=== PATIENT | male | born 1965 | race Caucasian/White ===

== ENCOUNTER 2017-12-13 06:43 | Day surgery (SDC) | payer OTHER ==
[~2017-12-13] VITALS: Ht 177.8 cm; Wt 88.5 kg
[~2017-12-13 06:43] MED LIST: ARIPIPRAZOLE5 MG PO; CHLORPROMAZINE100 MG PO; DIVALPROEX SOD500 M1 PO; FLUOXETINE HCL60 MG PO; HYDROCHLOROTHIA25 MG PO; OMEPRAZOLE20 MG PO
[2017-12-13] MEDS ORDERED: METOPROLOL SUCC25 MG PO (07:32)
--- NOTE | 2017-12-13 09:04 | NUR ---
IS COMFORTABLE. IV PATENT. UPDATE GIVEN.
--- NOTE | 2017-12-13 10:02 | NUR ---
0950 UP TO BR. DENIES ANY NEEDS. IV PATENT.
--- NOTE | 2017-12-13 12:36 | NUR ---
12/13/17 1236 Valarie Bennett 1215- CNRA AT [facility] WITH PT, O2 SAT 87%. [employer] SALESPERSON PUT HOB IN HIGH FOWLERS AND USING SUCTION. 1221 ORAL AIRWAY REMOVED. 1223 RT AT [facility] SETTING UP CPAP WITH O2. 1225 BREATHING TREATMENT GIVEN PER [employer] SALESPERSON ORDER. 1228 X-RAY AT [facility] FOR CHEST X-RAY PER [employer] SALESPERSON ORDER. 1229 CPAP SET UP WITH 4L O2. O2 SAT 100%. PT DROWSY, REORIENTED TO PACU, DENINES PAIN AND NAUSEA.
--- NOTE | 2017-12-13 15:16 | NUR ---
1450 AMB WELL TO BR VOIDS QS HAS TAKEN PO WELL. KARLEE PAIN PILL. WANTS TO GO RIDE COMING AT 1500.
--- NOTE | 2017-12-27 17:38 | OR ---
[facility] [address] [place], [place] [address] Signed DATE OF OPERATION: 12/13/2017 SURGEON: Jeremy Still MD PREOPERATIVE DIAGNOSIS: Left hydrocele. POSTOPERATIVE DIAGNOSIS: Left hydrocele. NAMES OF PROCEDURES: Left hydrocelectomy. ANESTHESIA: General. ESTIMATED BLOOD LOSS: 5 mL. COMPLICATIONS: None. SPECIMENS: Left hydrocele sac sent to pathology for evaluation. DRAINS: None. INDICATIONS FOR PROCEDURE: Mr. Boateng is a very pleasant 52-year-old gentleman, who recently presented to my clinic with complaints of a left testicular swelling and enlargement. He had undergone an ultrasound, which confirmed the presence of a moderately-sized left hydrocele. After discussion of the risks and benefits of the procedure, which does include hematoma, infection, and damage to testicular structures, the patient elected to undergo left hydrocelectomy. OPERATIVE FINDINGS: 1. Examination of the external genitalia reveals a normal circumcised phallus with a glanular meatus. Testicles are descended bilaterally. There is some swelling and enlargement associated with the left hemiscrotum, which is consistent with a left-sided Electronically Signed By: JEREMY STILL MD 12/27/17 1738 PATIENT NAME: SEGUN BOATENG OPERATIVE REPORT DATE OF : 65 REPORT #: [id number] PHYSICIAN: JEREMY STILL MD PCP: LARISSA QUISPE REPORT IS CONFIDENTIAL AND NOT TO BE RELEASED WITHOUT AUTHORIZATION [facility] [address] [place], [place] [address] Signed hydrocele. 2. The patient's moderately-sized left hydrocele was corrected using the Jaboulay technique without complication. 3. A portion of the left hydrocele sac was sent to pathology for evaluation. No drains were placed. DESCRIPTION OF PROCEDURE: After informed consent was obtained, the patient was taken back to the operating room. He was transferred [facility] to the operating room table, where general anesthesia was induced. He was placed in the supine position and his genitalia prepped and draped in a standard sterile fashion. A marker was used to abdoul the median raphae and then an approximately 3.5 cm transverse incision was made into the left hemiscrotum. This was dissected down through the dartos fascia to the level of the tunica vaginalis. I then bluntly dissected the dartos fascia from around the tunica vaginalis and then delivered the left testicle from the left hemiscrotum. I removed all the residual paratesticular tissue using mostly some electrocautery and manual retraction. Once the hydrocele sac was clearly visible, I placed 2 Allis clamps into the sac and then incised the sac to allow drainage of approximately 150 mL of straw-colored fluid. The hydrocele sac was then incised and a portion of the sac was then sent to pathology for evaluation. I then wrapped the sac around the posteriorly in the routine Jaboulay technique. The ends of the sac were then joined and then closed in a continuous running fashion using 3-0 chromic suture. All the while hemostasis was achieved and maintained with judicious use of electrocautery. I placed the left testicle back into the left hemiscrotum and in the appropriate orientation. I evaluated the dartos layer of the left hemiscrotum to be sure there were no residual bleeders. That area was then irrigated with sterile solution. The dartos fascia was then closed in a continuous running fashion using 3-0 Vicryl. The superficial skin of the scrotum was then closed in a simple interrupted fashion using 3-0 Vicryl. The area was cleaned and dried and then bacitracin was applied along with scrotal fluffs. A scrotal support was then placed. The procedure was then terminated. The patient tolerated the procedure well without any complication. He will now be transferred to the postanesthesia care unit in stable condition. DISPOSITION: Once the patient awakens, I will discuss the details of today's procedure with him and answered all of his questions. He does not have anybody with him, so he will be calling a medical ride for him to return home. He will be sent home with Percocet 5/325, dispensed #30 as needed for pain along with Keflex 500 mg p.o. b.i.d. for a total of 10 days. He will be scheduled to return to clinic in approximately 2 weeks for his first postoperative evaluation. Electronically Signed By: JEREMY STILL MD 12/27/17 5679 PATIENT NAME: SEGUN BOATENG OPERATIVE REPORT DATE OF : 65 REPORT #: [id number] PHYSICIAN: JEREMY STILL MD PCP: LARISSA QUISPE REPORT IS CONFIDENTIAL AND NOT TO BE RELEASED WITHOUT AUTHORIZATION [facility] [address] [place] [id number] Signed MD DAVID Payton/MODL /[id number] Copies: ~ Electronically Signed By: JEREMY STILL MD 12/27/17 1738 PATIENT NAME: BOATENGSEGUN OPERATIVE REPORT DATE OF : 65 REPORT #: [id number] PHYSICIAN: JEREMY STILL MD PCP: LARISSA QUISPE REPORT IS CONFIDENTIAL AND NOT TO BE RELEASED WITHOUT AUTHORIZATION
== END 2017-12-13 15:00 | disposition home or self-care (01) ==
LOC: OPS 06:43 → DS 11:32 → OPS 12:10
PROVIDERS: Urology
PROC: 0VB70ZZ Excision of Left Tunica Vaginalis, Open Approach (ICD-10-PCS; principal; 2017-12-13 12:10)
DX: N43.3 Hydrocele, unspecified (principal); N50.89 Other specified disorders of the male genital organs; K21.9 Gastro-esophageal reflux disease without esophagitis; I10 Essential (primary) hypertension; F32.9 Major depressive disorder, single episode, unspecified; F10.10 Alcohol abuse, uncomplicated; Z98.890 Other specified postprocedural states; Z87.891 Personal history of nicotine dependence; Z79.899 Other long term (current) drug therapy; Z88.0 Allergy status to penicillin
CPT/HCPCS: 00920; 71045; 88302; 94640; J0330; J0696; J1885; J2250; J2405; J2704; J3010; J7120

== ENCOUNTER → 2018-05-11 | Emergency (ER) | payer OTHER ==
[~2018-05-11] VITALS: Ht 177.8 cm; Wt 88.5 kg
[~2018-05-11] MED LIST changes: +METOPROLOL SUCC25 MG PO
== END ==
LOC: ED 09:06
DX: S61.412A Laceration without foreign body of left hand, initial encounter (principal); W26.0XXA Contact with knife, initial encounter

== ENCOUNTER 2018-07-26 07:02 | Day surgery (SDC) | payer OTHER ==
[~2018-07-26] VITALS: Ht 177.8 cm; Wt 83.5 kg
--- NOTE | 2018-07-26 08:33 | NUR ---
07/26/18 0833 Shelley Coffey 0822-PATIENT ARRIVED TO PACU ON 3L NC 02 SAT 100% PATIENT REACTIVE TO VOICE OPENS EYES VERY DROWSY BACK TO SLEEP. ABDOMEN SOFT. RR EVEN. 0833-WEANED TO 2L NC.
--- NOTE | 2018-07-26 10:03 | NUR ---
PT ALERT, ORIENTED AND PLEASANT. PREVIOUS SCOPES, AND SEEMED PREPARED. HAD FEW QUESTIONS, WILL HAVE STAFF CALL MED. TRANSPORT FOR RIDE HOME. EXTENDED A BLESSING, WILL FOLLOW NEEDED
--- NOTE | 2018-07-27 08:39 | OR ---
[facility] [address] [place], [place] [address] Signed DATE OF OPERATION: 07/26/2018 SURGEON: Luann Mehta MD COLONOSCOPY REPORT PREOPERATIVE DIAGNOSES: 1. Personal history of colonic polyps. 2. A 3 mm cecal polyp. 3. Small internal hemorrhoids. PROCEDURE PERFORMED: Colonoscopy with hot biopsy. ESTIMATED BLOOD LOSS: None. INDICATIONS: Milton is a 52-year-old gentleman, who about 10 years ago in [place], [place] underwent upper and lower endoscopy. He said he cannot remember the indications. He was told he had colonic polyps and he should return every 5 years. In the meantime, he moved out to [place], [place]. He said he is doing great. He has no lower GI complaints. There is no family history of colon cancer or polyps. I met with Milton in the office, I gave him a booklet on colonoscopy, we looked at that together along with the risks including, but not limited to gas bloating, crampy abdominal pain, bleeding, perforation, requiring surgery, and missed diagnosis. We also discussed the need for IV conscious sedation. He had expressed understanding and wished to proceed. PROCEDURE NOTE: Milton was taken into our endoscopy suite and placed in the left lateral decubitus position. He was given 5 mg of Versed and 100 mcg of fentanyl to cover the case. A digital rectal exam was unremarkable including the prostate. The adult colonoscope was introduced and advanced quite readily up to the cecum. His prep was quite good. The scope was slowly withdrawn. We saw just a tiny polyp in the cecum and we removed that quite easily with the help of a hot biopsy forceps. No other pathology was found in the colon or rectum. Upon retroflexion of the scope, he does have small internal hemorrhoid columns. After this, the gas was suctioned out and the colonoscope removed. Milton tolerated the procedure quite well. RECOMMENDATIONS: Electronically Signed By: LUANN MEHTA MD 07/27/18 0839 PATIENT NAME: MILTON BOATENG OPERATIVE REPORT DATE OF : 65 REPORT #: [id number] PHYSICIAN: LAUNN MEHTA MD PCP: CHERRY HARRISON REPORT IS CONFIDENTIAL AND NOT TO BE RELEASED WITHOUT AUTHORIZATION [address] [address] Signed It looks like I will see Milton paez in my office in 7 to 14 days to review his results. He will probably need colonoscopy in every 5 years based on his previous colonoscopy. Luann Mehta MD ALB/MARICELL /[id number] cc: Remy Mehta MD Copies: REMY QUISPE ANDREW L MD ~ Electronically Signed By: LUANN MEHTA MD 07/27/18 0839 PATIENT NAME: MILTON BOATENG OPERATIVE REPORT DATE OF : 65 REPORT #: [id number] PHYSICIAN: LUANN MEHTA MD PCP: HCERRY HARRISON REPORT IS CONFIDENTIAL AND NOT TO BE RELEASED WITHOUT AUTHORIZATION
== END 2018-07-26 10:00 | disposition home or self-care (01) ==
LOC: DS 07:02 → OPS 07:02 → DS 09:00 → OPS 09:00
PROVIDERS: Colon & Rectal Surgery
PROC: 0DBH8ZZ Excision of Cecum, Via Natural or Artificial Opening Endoscopic (ICD-10-PCS; principal; 2018-07-26 08:15)
DX: Z12.11 Encounter for screening for malignant neoplasm of colon (principal); K63.5 Polyp of colon; K64.8 Other hemorrhoids; I10 Essential (primary) hypertension; K21.9 Gastro-esophageal reflux disease without esophagitis; F31.9 Bipolar disorder, unspecified; Z88.0 Allergy status to penicillin; Z86.010 Personal history of colon polyps; Z79.899 Other long term (current) drug therapy
CPT/HCPCS: G0500; J2250; J3010; J7120

== ENCOUNTER 2018-10-17 13:01 | Emergency (ER) | payer OTHER ==
[~2018-10-17] VITALS: Ht 177.8 cm; Wt 83.5 kg
[2018-10-17] MEDS ORDERED: OMEPRAZOLE20 MG PO (15:53)
[2018-10-17] MEDS ORDERED: STRATTERA60 MG PO (15:54)
== END 2018-10-17 17:02 | disposition home or self-care (01) ==
LOC: ED 13:01
DX: F63.9 Impulse disorder, unspecified (principal); R45.851 Suicidal ideations; F17.200 Nicotine dependence, unspecified, uncomplicated; Z88.0 Allergy status to penicillin; Z88.8 Allergy status to other drugs, medicaments and biological substances; Z79.899 Other long term (current) drug therapy
CPT/HCPCS: 80053; 80176; 81001; 85025; 96372; 99285-25; G0480; J1630; J2060